=== PATIENT | female | born 1980 | race Caucasian/White ===

== ENCOUNTER 2023-12-11 05:22 | Emergency (ER) | payer SELFPAY ==
[~2023-12-11] VITALS: Ht 152.4 cm; Wt 48.0 kg
[2023-12-11 05:32] VITALS: O2SAT 98
[2023-12-11] MEDS: SODIUM CHLORIDE 0.9% 1,000 ML IV ONE (05:45)
[2023-12-11 06:44] LABS: BASOPHILS % 0.9 % (0.0-2.0); EOSINOPHILS % 3.3 % (0.0-5.0); HEMATOCRIT. 38.9 % (36.0-48.0); HEMOGLOBIN. 13.8 g/dL (12.0-16.0); LYMPHOCYTES % 22.2 % (20.0-50.0); MEAN CORPUSCULAR HEMOGLOBIN 31.1 pg (28.0-32.0); MEAN CORPUSCULAR HGB CONC 35.5 g/dL (31.0-37.0); MEAN CORPUSCULAR VOLUME 87.6 fL (81.0-99.0); MEAN PLATELET VOLUME 9.1 fl (7.4-10.4); MONOCYTES % 5.3 % (2.0-8.0); NEUTROPHILS % 68.3 % (40.0-76.0); PLATELET 314 x1000/uL (130-400); RED BLOOD CELL COUNT 4.44 mill/uL (4.2-5.4); RED CELL DISTRIBUTION WIDTH 13.8 % (11.6-14.6); WHITE BLOOD COUNT 9.9 x1000/uL (4.5-11.0)
[2023-12-11 06:49] LABS: CHLORIDE 107 mEq/L (98-107); POTASSIUM 3.6 mEq/L (3.5-5.1); SODIUM 140 mEq/L (136-145)
[2023-12-11 06:50] LABS: CARBON DIOXIDE 25 mEq/L (21-32)
[2023-12-11 06:51] LABS: CALCIUM 8.8 mg/dL (8.7-10.4)
[2023-12-11 06:56] LABS: CREATININE 0.6 mg/dL (0.6-1.0); GLUCOSE 105 mg/dL (70-105); UREA NITROGEN BLOOD 9 mg/dL (9-23)
[2023-12-11 07:03] LABS: PROTHROMBIN TIME 10.7 sec (9.6-11.0)
[2023-12-11 07:14] LABS: HCG SCREEN NEGATIVE
[2023-12-11] MEDS: MORPHINE SULFATE 4 MG/ML INJ (FOR IV/IM USE) IV ONE (10:13)
[2023-12-11] MEDS: IOHEXOL-350 100 ML BOTTLE ONE (10:13)
[2023-12-11 10:32] VITALS: BP 136/70; PULSE 66; RESP 13; TEMP 98.3
== END 2023-12-11 11:13 | disposition home or self-care (01) ==
LOC: ER 05:22
DX: S50.311A Abrasion of right elbow, initial encounter (principal); R51.9 Headache, unspecified; Z88.0 Allergy status to penicillin; V09.9XXA Pedestrian injured in unspecified transport accident, initial encounter; Y93.89 Activity, other specified; Y92.89 Other specified places as the place of occurrence of the external cause; Y99.8 Other external cause status
CPT/HCPCS: 99285; 71275; 96360; 71045; 96361; 80048; 84703; 85025; 85610; 36415; 72170; 73030; 73080; 73562; 70450; 72125; 74177; Q9967; J7030